=== PATIENT | female | born 1970 | race Caucasian/White ===

== ENCOUNTER 2016-08-15 14:55 | Emergency (ER) | payer OTHER ==
[~2016-08-15] VITALS: Ht 170.2 cm; Wt 80.0 kg
[~2016-08-15 14:55] MED LIST: EFFE150C PO; OXYC-360 PO; PRIL20CA PO; Z.0.BCPILL PO; ZOVI800T13 PO
[2016-08-15 14:57] VITALS: BP 109/57; PULSE 102; RESP 16; TEMP 97.5; O2SAT 99
[2016-08-15] MEDS ORDERED: NAPR500T PO (15:41)
[2016-08-15] MEDS ORDERED: CYCL1TAB29 PO (15:41)
--- NOTE | 2016-08-15 15:43 | PD ---
HPI Chief Complaint: Pain: Acute or Chronic Time Seen by Provider: 15:42 Travel History International Travel<30 days: No Contact w/Intl Traveler<30days: No Traveled to known affect area: No History of Present Illness HPI 46-year-old female presents to the emergency department for evaluation of right lower back pain radiating down her right leg for 2 weeks. Denies any injury or trauma to her back. States that the patient had the pain for a week and then she accidentally tripped over a piece of carpet causing her to strain her back which worsened her pain over the past week. States that she saw a massage therapist and a chiropractor which did not improve her symptoms. She denies any fever, chills, nausea, vomiting, numbness or tingling, weakness, saddle anesthesia, bowel or bladder incontinence. Pain is aggravated with walking and movement. Alleviated with lying still. No other complaints. PFSH Past Medical History Depression: Yes GERD: Yes ?: Not Past Surgical History Genitourinary Surgery: Yes (left oopherectomy) Gynecologic Surgery: Yes (LT OOPHORECTOMY) Social History Alcohol Use: Yes (COUPLE DRINKS PER MONTH) Tobacco Use: No Substance Use: Yes (marijuana) Allergies-Medications (Allergen,Severity, Reaction): Coded Allergies: No Known Allergies (Verified , 08/15/16) Reported Meds & Prescriptions Reported Meds & Active Scripts Active Naproxen 500 Mg Tab 500 Mg PO BID 7 Days Flexeril (Cyclobenzaprine HCl) 10 Mg Tab 10 Mg PO TID 5 Days Percocet (Oxycodone/Acetaminophen) 5 Mg/325 Mg Tab 1-2 Tab PO Q4-6HPRN FOR PAIN Zovirax (Acyclovir) 800 Mg Tab 800 Mg PO 5 TIMES A DAY 7 Days Reported Effexor Xr (Venlafaxine HCl) 150 Mg Cap 150 Mg PO BID Prilosec 20 mg (Omeprazole) 20 Mg Capcr 20 Mg PO DAILY Control Pills (Miscellaneous Medication) Tab 1 Tab PO DAILY Review of Systems Except as stated in HPI: all other systems reviewed are Neg Physical Exam Narrative GENERAL: Well-nourished and well-developed pleasant female patient in no acute distress who is nontoxic appearing. SKIN: Warm and dry. HEAD: Normocephalic and atraumatic. EYES: No injection, drainage, or hyphema noted. PERRLA. EOMI. ENT: No nasal drainage noted. Oropharynx is clear. NECK: Supple and the trachea is midline. CARDIOVASCULAR: Regular rate and rhythm. RESPIRATORY: Breath sounds are equal bilaterally with no accessory muscle use, wheezing, rhonchi, or crackles. GASTROINTESTINAL: Abdomen is soft, non-tender, and nondistended. MUSCULOSKELETAL: Tenderness to palpation over right buttock. No obvious deformities, swelling, cyanosis, or ecchymosis is present throughout the upper and lower extremities. Patient has full range of motion without any signs of neurovascular compromise. Strength 5/5 upper and lower extremities equal bilaterally. Right SLR positive. BACK: Nontender without any obvious deformities, bony point tenderness, or crepitus noted throughout the thoracic and lumbar vertebrae. NEUROLOGICAL: Awake, alert, and oriented. Normal speech and gait. Cranial nerves are grossly intact. Data Data Last Documented VS Vital Signs Date Time Temp Pulse Resp B/P Pulse Ox O2 Delivery O2 Flow Rate FiO2 08/15/16 14:57 97.5 102 16 109/57 99 Room Air Orders Ketorolac Inj (Toradol Inj) (08/15/16 15:45) Orphenadrine Inj (Norflex Inj) (08/15/16 15:45) MDM Medical Decision Making Medical Screen Exam Complete: Yes Emergency Medical Condition: Yes Differential Diagnosis Sciatica versus lumbar radiculopathy versus muscle strain versus muscle spasm Narrative Course 46-year-old female presents to the emergency department for evaluation of right buttock pain radiating down her right leg. Patient is afebrile, vital signs are stable. No traumatic injury. No bony point tenderness. No focal neurologic deficits. This is consistent with sciatica. Patient is given Toradol 60 mg IM and Norflex 60 mg IM. She'll be discharged with naproxen and Flexeril. Discussed supportive care. Advised to follow-up with her PCP. Patient verbalizes understanding and agreement with treatment plan. Diagnosis Primary Impression: Sciatica of right side Referrals: Primary Care Physician Patient Instructions: General Instructions, Sciatica (ED) Additional Instructions: Apply heating pad. Performed gentle stretches. Take medications as prescribed with food and a full glass of water. Do not take Flexeril with alcohol or while driving. Follow-up with your Primary Care Physician. Return to the ED for any acute worsening of symptoms. Med/Other Pt SpecificInfo: Prescription(s) given Scripts Naproxen 500 Mg Chr203 Mg PO BID 7 Days Ref 0 Prov:Raquel Rogers DO 08/15/16 Cyclobenzaprine (Flexeril)10 Mg Tab10 Mg PO TID 5 Days Ref 0 Prov:Raquel Rogers DO 08/15/16 Disposition: 01 DISCHARGE HOME Condition: Stable Theodora Vasquez Aug 15, 2016 15:43
[2016-08-15] MEDS ORDERED: KETOROLAC TROMETHAMINE 60 MG/2 ML (IM) VIAL IM ONE (15:45)
[2016-08-15] MEDS ORDERED: ORPHENADRINE INJ 60 MG/2 ML AMP IM ONE (15:45)
[2016-12-03] MEDS ORDERED: LAMI250T PO (11:50)
[2016-12-03] MEDS ORDERED: METH2.5T PO (11:50)
== END 2016-08-15 15:53 | disposition home or self-care (01) ==
LOC: NEPB 14:55
DX: M54.31 Sciatica, right side (principal); F12.90 Cannabis use, unspecified, uncomplicated
CPT/HCPCS: 96372; 99282; J1885; J2360